=== PATIENT | female | born 1950 | race Caucasian/White ===

== ENCOUNTER 2019-02-17 08:27 | Day surgery (SDC) | payer MEDICARE, OTHER ==
[~2019-02-17] VITALS: Ht 160 cm; Wt 65.7 kg
[~2019-02-17 08:27] MED LIST: AMLO5 PO; ASPI325EC PO; CARV6.25 PO; CYCL10; DULO30; Furosemide20 MG; GABA600 PO; Hydrochlorothia25 MG PO; IBUP600 PO; LOSARTAN POTAS100 MG PO; LOSHYD100; Micro-K10 MEQ; Mobic15 MG PO; OLME20 PO; Omeprazole20 M1; VENL37.5 PO
== END 2019-02-17 11:00 | disposition home or self-care (01) ==
LOC: ORSCSDS 08:27
PROVIDERS: Ophthalmology
PROC: 08RK3JZ Replacement of Left Lens with Synthetic Substitute, Percutaneous Approach (ICD-10-PCS; principal; 2019-02-17 10:00)
DX: H25.12 Age-related nuclear cataract, left eye (principal); Z79.899 Other long term (current) drug therapy; I10 Essential (primary) hypertension; Z87.891 Personal history of nicotine dependence
CPT/HCPCS: J2001; J2250; J3010; J3301; J7120; V2632

== ENCOUNTER 2019-03-31 06:12 | Day surgery (SDC) | payer MEDICARE, OTHER ==
[~2019-03-31] VITALS: Ht 160 cm; Wt 65.7 kg
--- NOTE | 2019-03-31 07:04 | NUR ---
03/31/19 0704 Shannon Estrada PT COMPLAINS THAT IV SITE ACHES, IT IS RUNNING WELL AND NOT IRRITATION OR REDNESS NOTED, I OFFERED TO RESTART IT IN A DIFFERENT LOCATION. SHE SAYS SHE IS TOLERATING IT AND WILL KEEP IT IN THAT LOCATION FOR THE PROCEDURE.
== END 2019-03-31 08:07 | disposition home or self-care (01) ==
LOC: ORSCSDS 06:12
PROVIDERS: Ophthalmology
PROC: 08RJ3JZ Replacement of Right Lens with Synthetic Substitute, Percutaneous Approach (ICD-10-PCS; principal; 2019-03-31 07:30)
DX: H25.11 Age-related nuclear cataract, right eye (principal); I10 Essential (primary) hypertension; Z79.899 Other long term (current) drug therapy
CPT/HCPCS: J2001; J2250; J3010; J3301; J7120; V2632

== ENCOUNTER 2019-06-29 12:28 | Day surgery (SDC) | payer MEDICARE, OTHER ==
[~2019-06-29] VITALS: Ht 160 cm; Wt 65.1 kg
[~2019-06-29 12:28] MED LIST changes: +IBUP400 PO
--- NOTE | 2019-06-29 13:26 | NUR ---
Ambulatory in Day SurgeryLungs clear T/O to Auscultation. History, Chart, Medications and Allergies reviewed before start of procedure.Patient confirms NPO status and agrees with scheduled surgery. Pre-Op teaching done. Pt verbalizes understanding.
--- NOTE | 2019-06-29 18:14 | NUR ---
PT ARRIVED TO THE ROOM AT APPROXIMATELY 1740. PT ALERT AND ORIENTED. PT DENIES PAIN. PT IS ABLE TO MOVE ALL EXTREMITIES WELL. SHE REPORTS DECREASED SENSATION BELOW KNEE LEVEL. DENIES NAUSEA. VSS. WILL CONTINUE TO MONITOR.
--- NOTE | 2019-06-29 19:28 | NUR ---
SHIFT SUMMARY NO SIGNIFICANT CHANGES TO REPORT SINCE PT ARRIVED TO FLOOR POST-OP. PO PAIN MEDICATION GIVEN. PT REPORTS SHE IS STARTING TO HAVE MORE FEELING IN HER BLE. VSS. REPORT GIVEN TO MACHELLE SKELTON.
[2019-06-30 05:14] LABS: BASOPHILS ABSOLUTE AUTO 0.04 K/mm3 (0.00-0.23); BASOPHILS PERCENT AUTO 0 % (0-2); EOSINOPHILS ABSOLUTE AUTO 0.02 K/mm3 (0.00-0.68); EOSINOPHILS PERCENT AUTO 0 % (0-6); Hematocrit 34.2 % (33.0-51.0); IMMATURE GRAN ABSOLUTE AUTO 0.03 K/mm3 (0.00-0.10); IMMATURE GRAN PERCENT AUTO 0 % (0-1); LYMPHOCYTES ABSOLUTE AUTO 1.28 K/mm3 (0.84-5.20); LYMPHOCYTES PERCENT AUTO 12 % (21-46); MONOCYTES PERCENT AUTO 8 % (4-13); Mean Corpuscular HGB 28.6 pg (26.0-34.0); Mean Corpuscular HGB Conc 32.2 g/dL (31.5-36.5); Mean Corpuscular Volume 89 fL (80-100); Mean Platelet Volume 10.5 fL (9.1-12.4); NEUTROPHILS ABSOLUTE AUTO 8.53 K/mm3 (1.96-9.15); NEUTROPHILS PERCENT AUTO 80 % (41-73); Platelet Count 202 K/mm3 (150-400); RDW Coefficient Variation 13.7 % (11.7-14.2); RDW Standard Deviation 44.6 fL (35.1-46.3); Red Blood Cell Count 3.85 M/mm3 (3.80-5.20)
[2019-06-30 05:29] LABS: Anion Gap 6 mmol/L (6-16); Blood Urea Nitrogen 13 mg/dL (8-24); Bun/Creatinine Ratio 24.1 (12.0-20.0); CO2, Blood 30 mmol/L (21-32); Calcium, Blood 8.3 mg/dL (8.5-10.1); Chloride, Blood 107 mmol/L (98-108); Creatinine, Blood 0.54 mg/dL (0.40-1.00); Glomerular Filtration Rate >60 (60-); Glucose, Blood 131 mg/dL (70-99); Magnesium, Blood 1.9 mg/dL (1.6-2.4); Potassium, Blood 3.8 mmol/L (3.5-5.5); Sodium, Blood 143 mmol/L (136-145)
--- NOTE | 2019-06-30 07:18 | NUR ---
SUMMARY POD #1 LEFT TKA DRSG REMAINS C/D/I, CIRC WNL. PAIN MANAGED PER EMAR WITH PO OXYCODONE/TYLENOL. PT IS TOLERATING PO INTAKE. VOIDING WNL. 1 ASSIST TO THE BATHROOM USING FWW/GAIT BELT. CALL LIGHT IN REACH.
--- NOTE | 2019-06-30 08:31 | NUR ---
THERAPY REPORTS WILL BE WORKING WITH PT SOON.
--- NOTE | 2019-06-30 14:28 | NUR ---
DR ROSSI HERE RECENTLY TO SEE PT. DRESSING CHANGED.
[2019-06-30] MEDS ORDERED: OXYC5 PO (16:16)
[2019-06-30] MEDS ORDERED: ASPI325EC PO (16:50)
--- NOTE | 2019-06-30 17:00 | NUR ---
DISCHARGE: PT EATING AND DRINKING, VOIDING. PT BEEN CLEARED BY THERAPY TO GO HOME. PT/FAMILY REPORTS HAVING APPR EQUIP AT HOME. PT/FAMILY REPORTS UNDERSTANDING OF DISCHARGE INSTRUCTIONS INCLUDING DRESSINGS, ICE MACHINE. PT SENT WITH DRESSING SUPPLIES, ICE MACHINE, PAPERWORK INCLUDING SCRIPTS.
== END 2019-06-30 17:12 | disposition home or self-care (01) ==
LOC: ORSCMMR 12:28 → SURS 17:37 → ORSCMMR 17:37 → SURS 06-30 17:12 → ORSCMMR 06-30 17:12
PROVIDERS: Orthopaedic Surgery
PROC: 0SRD0J9 Replacement of Left Knee Joint with Synthetic Substitute, Cemented, Open Approach (ICD-10-PCS; principal; 2019-06-29 14:30)
DX: M17.12 Unilateral primary osteoarthritis, left knee (principal); E78.5 Hyperlipidemia, unspecified; I10 Essential (primary) hypertension; Z87.891 Personal history of nicotine dependence; Z79.899 Other long term (current) drug therapy
CPT/HCPCS: 36415; 73560-LT; 80048; 83735; 85025; 86850; 86900; 86901; 88300; 97110; 97116; 97161; 97530; C1713; C1776; J0171; J0690; J0735; J1100; J1885; J2250; J2370; J2405; J2704; J2795; J3010; J7120

== ENCOUNTER 2022-09-20 06:14 | Day surgery (SDC) | payer OTHER ==
[~2022-09-20] VITALS: Ht 160 cm; Wt 71.5 kg
[~2022-09-20 06:14] MED LIST changes: +ASPI81CH PO; +DICL75ER PO; +OXYC5 PO; +Percocet 5-3251 EACH PO
[2022-09-20] MEDS ORDERED: Vitamin D2000 UNIT PO (06:54)
--- NOTE | 2022-09-20 07:57 | NUR ---
09/20/22 0757 Jeb Foy 0.15ML OF EPI 1MG/ML ADDED TO 30ML OF ROPIVICAINE 0.5% TO CREATE A SOLUTION OF ROPIVICAINE 0.5% WITH EPI 1:200,000.
--- NOTE | 2022-09-20 09:55 | NUR ---
09/20/22 0955 HAN BRUNO PT EATING AND DRINKING W/O DIFFICULTY. STATES PAIN NOT BAD, 02/17.
== END 2022-09-20 10:45 | disposition home or self-care (01) ==
LOC: ORSCSDS 06:14
PROVIDERS: Podiatrist Foot & Ankle Surgery
PROC: 0SNM0ZZ Release Right Metatarsal-Phalangeal Joint, Open Approach (ICD-10-PCS; principal; 2022-09-20 07:30)
PROC: 0QSQ04Z Reposition Right Toe Phalanx with Internal Fixation Device, Open Approach (ICD-10-PCS; principal; 2022-09-20 07:30)
PROC: 0SGP04Z Fusion of Right Toe Phalangeal Joint with Internal Fixation Device, Open Approach (ICD-10-PCS; principal; 2022-09-20 07:30)
PROC: 0SGK04Z Fusion of Right Tarsometatarsal Joint with Internal Fixation Device, Open Approach (ICD-10-PCS; principal; 2022-09-20 07:30)
DX: M21.611 Bunion of right foot (principal); M20.41 Other hammer toe(s) (acquired), right foot; M77.41 Metatarsalgia, right foot; R60.0 Localized edema; I10 Essential (primary) hypertension; Z79.899 Other long term (current) drug therapy
CPT/HCPCS: A9270; C1713; J0171; J0690; J1100; J1885; J2250; J2405; J2704; J2795; J3010; J7120

== ENCOUNTER → 2023-08-27 | Outpatient (CLI) | payer OTHER ==
[~2023-08-27] MED LIST changes: +Vitamin D2000 UNIT PO
== END | disposition home or self-care (01) ==
LOC: LAB SHORT 11:12 → LAB 11:12
DX: R22.2 Localized swelling, mass and lump, trunk (principal)
CPT/HCPCS: 88305; 88341; 88342

== ENCOUNTER → 2023-09-10 | Outpatient (CLI) | payer OTHER ==
[2023-09-10 12:02] LABS: BASOPHILS ABSOLUTE AUTO 0.06 K/mm3 (0.00-0.23); BASOPHILS PERCENT AUTO 1 % (0-2); EOSINOPHILS ABSOLUTE AUTO 0.14 K/mm3 (0.00-0.68); EOSINOPHILS PERCENT AUTO 3 % (0-6); Hematocrit 43.7 % (33.0-51.0); Hemoglobin 14.3 g/dL (11.5-16.0); IMMATURE GRAN ABSOLUTE AUTO 0.01 K/mm3 (0.00-0.10); IMMATURE GRAN PERCENT AUTO 0 % (0-1); LYMPHOCYTES ABSOLUTE AUTO 1.27 K/mm3 (0.84-5.20); LYMPHOCYTES PERCENT AUTO 23 % (21-46); MONOCYTES ABSOLUTE AUTO 0.39 K/mm3 (0.16-1.47); MONOCYTES PERCENT AUTO 7 % (4-13); Mean Corpuscular HGB 29.1 pg (26.0-34.0); Mean Corpuscular HGB Conc 32.7 g/dL (31.5-36.5); Mean Corpuscular Volume 89 fL (80-100); NEUTROPHILS ABSOLUTE AUTO 3.75 K/mm3 (1.96-9.15); NEUTROPHILS PERCENT AUTO 67 % (41-73); Platelet Count 219 K/mm3 (150-400); RDW Coefficient Variation 13.4 % (11.7-14.2); Red Blood Cell Count 4.92 M/mm3 (3.80-5.20); White Blood Cell Count 5.62 K/mm3 (4.00-11.30)
[2023-09-10 12:22] LABS: Albumin, Blood 4.3 g/dL (3.4-5.0); Albumin/Globulin Ratio 1.3 (0.8-1.8); Bilirubin, Total 0.3 mg/dL (0.1-1.0); Bun/Creatinine Ratio 26.5 (12.0-20.0); Calcium, Blood 9.8 mg/dL (8.5-10.1); Creatinine, Blood 0.75 mg/dL (0.40-1.00); Globulin, Blood 3.3 g/dL (2.2-4.0); Potassium, Blood 4.4 mmol/L (3.5-5.5); Total Protein, Blood 7.6 g/dL (6.4-8.2)
== END | disposition home or self-care (01) ==
LOC: LAB 10:57 → LAB SHORT 10:57
PROVIDERS: Internal Medicine Hematology & Oncology
DX: C43.59 Malignant melanoma of other part of trunk (principal)
CPT/HCPCS: 80053; 83615; 85025

== ENCOUNTER 2023-10-31 15:46 | Emergency (ER) | payer OTHER ==
[~2023-10-31] VITALS: Ht 160 cm; Wt 68.0 kg
[2023-10-31 16:16] LABS: Hematocrit 37.6 % (33.0-51.0); Hemoglobin 12.6 g/dL (11.5-16.0); Mean Corpuscular HGB Conc 33.5 g/dL (31.5-36.5); Mean Corpuscular Volume 86 fL (80-100); Mean Platelet Volume 10.5 fL (9.1-12.4); Platelet Count 211 K/mm3 (150-400); RDW Coefficient Variation 13.1 % (11.7-14.2); RDW Standard Deviation 41.3 fL (35.1-46.3); Red Blood Cell Count 4.35 M/mm3 (3.80-5.20); White Blood Cell Count 5.71 K/mm3 (4.00-11.30)
[2023-10-31] MEDS ORDERED: Diclofenac Sodi50 MG PO (16:46)
[2023-10-31] MEDS ORDERED: AMLODIPINE-OLM1 EAC2 PO (16:47)
[2023-10-31] MEDS ORDERED: B-121000 MC3 PO (16:47)
[2023-10-31 16:54] LABS: Albumin, Blood 2.8 g/dL (3.4-5.0); Albumin/Globulin Ratio 0.7 (0.8-1.8); Bilirubin, Total 0.4 mg/dL (0.1-1.0); Bun/Creatinine Ratio 31.4 (12.0-20.0); Creatinine, Blood 0.93 mg/dL (0.40-1.00); Globulin, Blood 3.9 g/dL (2.2-4.0); Magnesium, Blood 2.1 mg/dL (1.6-2.4); Potassium, Blood 3.7 mmol/L (3.5-5.5); Total Protein, Blood 6.7 g/dL (6.4-8.2)
[2023-10-31 17:24] LABS: BAND PERCENT MAN 45 % (0-8); BASOPHILS ABSOLUTE MAN 0.11 K/mm3 (0.00-0.23); BASOPHILS PERCENT MAN 2 % (0-2); EOSINOPHILS PERCENT MAN 0 % (0-6); LYMPHOCYTES ABSOLUTE MAN 0.74 K/mm3 (0.84-5.20); LYMPHOCYTES PERCENT MAN 13 % (21-46); METAMYELOCYTE ABSOLUTE MAN 0.05 K/mm3 (0.00-0.00); METAMYELOCYTE PERCENT MAN 1 % (0-0); MONOCYTES ABSOLUTE MAN 0.74 K/mm3 (0.16-1.47); MONOCYTES PERCENT MAN 13 % (4-13); NEUTROPHILS ABSOLUTE MAN 4.05 K/mm3 (1.96-9.15); SEG NEUTROPHILS PERCENT MAN 26 % (41-73); TOTAL CELLS COUNTED 100
[2023-10-31 19:42] LABS: Adenovirus Not Detected (NOT DETECT); Bordetella pertussis Not Detected (NOT DETECT); Chlamydophila pneumoniae Not Detected (NOT DETECT); Coronavirus 229E Not Detected (NOT DETECT); Coronavirus HKU1 Not Detected (NOT DETECT); Coronavirus NL63 Not Detected (NOT DETECT); Coronavirus OC43 Not Detected (NOT DETECT); Human Metapneumovirus Not Detected (NOT DETECT); Human Rhinovirus/Enterovirus Not Detected (NOT DETECT); Influenza A/2009-H1 Not Detected (NOT DETECT); Influenza A/H1 Not Detected (NOT DETECT); Influenza A/H3 Not Detected (NOT DETECT); Influenza B Not Detected (NOT DETECT); Mycoplasma pneumoniae Not Detected (NOT DETECT); Parainfluenza Virus 1 Not Detected (NOT DETECT); Parainfluenza Virus 2 Not Detected (NOT DETECT); Parainfluenza Virus 3 Not Detected (NOT DETECT); Parainfluenza Virus 4 Not Detected (NOT DETECT); Respiratory Syncytial Virus Not Detected (NOT DETECT); SARS-Cov-2 (COVID-19), BioFire Not Detected (NOT DETECT)
[2023-10-31 20:30] VITALS: BP 127/72
[2023-10-31] MEDS ORDERED: ONDA4ODT MM (21:15)
[2023-10-31] MEDS ORDERED: PROMETHAZINE12.5 M1 PO (21:15)
== END 2023-10-31 21:44 | disposition home or self-care (01) ==
LOC: ER 15:46
PROVIDERS: Physician Assistant; Student in an Organized Health Care Education/Training Program
DX: E86.0 Dehydration (principal); R11.2 Nausea with vomiting, unspecified; R19.7 Diarrhea, unspecified; C43.9 Malignant melanoma of skin, unspecified; Z20.822 Contact with and (suspected) exposure to COVID-19; Z79.899 Other long term (current) drug therapy; I10 Essential (primary) hypertension; Z87.891 Personal history of nicotine dependence; Z88.2 Allergy status to sulfonamides
CPT/HCPCS: 0202U; 70450; 80053; 83735; 85025; 96374; 99284-25; A9270; J2405; J7030

== ENCOUNTER 2023-11-04 16:27 | Inpatient (IN) | payer OTHER ==
[~2023-11-04] VITALS: Ht 160 cm; Wt 71.9 kg
[~2023-11-04 16:27] MED LIST changes: +AMLODIPINE-OLM1 EAC2 PO; +B-121000 MC3 PO; +Diclofenac Sodi50 MG PO; +ONDA4ODT MM; +PROMETHAZINE12.5 M1 PO
[2023-11-04 16:57] LABS: Hematocrit 37.9 % (33.0-51.0); Hemoglobin 12.5 g/dL (11.5-16.0); Mean Corpuscular HGB 28.5 pg (26.0-34.0); Mean Corpuscular Volume 86 fL (80-100); Mean Platelet Volume 10.3 fL (9.1-12.4); Platelet Count 215 K/mm3 (150-400); RDW Coefficient Variation 13.4 % (11.7-14.2); RDW Standard Deviation 42.5 fL (35.1-46.3); Red Blood Cell Count 4.39 M/mm3 (3.80-5.20)
[2023-11-04 17:25] LABS: Albumin, Blood 2.4 g/dL (3.4-5.0); Albumin/Globulin Ratio 0.7 (0.8-1.8); Bilirubin, Total 0.2 mg/dL (0.1-1.0); Creatinine, Blood 1.22 mg/dL (0.40-1.00); Globulin, Blood 3.6 g/dL (2.2-4.0); Potassium, Blood 3.4 mmol/L (3.5-5.5)
[2023-11-04 18:19] LABS: BAND PERCENT MAN 1 % (0-8); BASOPHILS PERCENT MAN 0 % (0-2); EOSINOPHILS PERCENT MAN 0 % (0-6); LYMPHOCYTES % ATYPICAL MANUAL 2 % (0-0); LYMPHOCYTES ABSOLUTE MAN 0.82 K/mm3 (0.84-5.20); LYMPHOCYTES PERCENT MAN 16 % (21-46); METAMYELOCYTE ABSOLUTE MAN 0.09 K/mm3 (0.00-0.00); METAMYELOCYTE PERCENT MAN 2 % (0-0); MONOCYTES ABSOLUTE MAN 0.27 K/mm3 (0.16-1.47); MONOCYTES PERCENT MAN 6 % (4-13); MYELOCYTE ABSOLUTE MAN 0.13 K/mm3 (0.00-0.00); MYELOCYTE PERCENT MAN 3 % (0-0); NEUTROPHILS ABSOLUTE MAN 3.26 K/mm3 (1.96-9.15); SEG NEUTROPHILS PERCENT MAN 70 % (41-73); TOTAL CELLS COUNTED 100
[2023-11-04 19:46] LABS: Influenza A, PCR NEGATIVE (NEGATIVE); Influenza B, PCR NEGATIVE (NEGATIVE); Resp Syncytial Virus, PCR NEGATIVE (NEGATIVE); SARS-Cov-2 (COVID-19) PCR, MMC NEGATIVE (NEGATIVE)
[2023-11-04 20:38] LABS: Source, Urine Clean Catch
[2023-11-04 20:50] LABS: Bilirubin, Urine Neg (Neg); Blood, Urine 1+ (Neg); Glucose Qualitative, Urine Neg (Neg); Ketones, Urine Neg (Neg); Leukocyte Esterase, Urine Neg (Neg); Nitrite, Urine Neg (Neg); Protein, Urine 2+ (Neg); Urobilinogen, Urine NORM (Normal)
[2023-11-04 20:58] LABS: Appearance, Urine Turbid (Clear); Color, Urine Yellow (P-Yellow)
[2023-11-04 21:00] LABS: Amorphous Mod (0-Heavy); Bacteria Few /hpf; Granular Casts 0-2 /lpf (0); Squamous Epithelial Cells Few /hpf (Few); White Blood Cells, Urine 0-2 /hpf (0-5)
[2023-11-04 21:13] LABS: U Amphetamine Screen Not Detected; U Barbituate Screen Not Detected; U Benzodiazapine Screen Not Detected; U Buprenorphine Screen Not Detected; U Cannabinoids Screen Not Detected; U Cocaine Screen Not Detected; U Methadone Screen Not Detected; U Methamphetamine Screen Not Detected; U Opiates Screen Not Detected; U Oxycodone Screen Not Detected; U Phencyclidine Screen Not Detected
[2023-11-04] MEDS ORDERED: AMLODIPINE BESYL5 MG PO (22:50)
[2023-11-04] MEDS ORDERED: OLMESARTAN MEDO20 MG PO (22:51)
[2023-11-04 23:06] LABS: International Normalized Ratio 1.04; Prothrombin Time Results 10.9 Sec (9.7-11.5)
[2023-11-04 23:39] VITALS: BP 132/75
--- NOTE | 2023-11-04 23:39 | NUR ---
NEW ADMIT. PATIENT TO ROOM 350 FROM THE ER VIA WHEEL CHAIR. PATIENT ABLE TO SELF TRANSFER TO BED. PATIENT CAME TO ROOM WITH A PERSONAL BLACK BAG, AND A PERSONAL BELONGINGS BAG. PATIENT ARRIVED IN HER STREET CLOTHES.
[2023-11-05 00:59] LABS: Hematocrit 35.8 % (33.0-51.0); Hemoglobin 11.8 g/dL (11.5-16.0); Mean Corpuscular HGB 28.2 pg (26.0-34.0); Mean Corpuscular Volume 85 fL (80-100); Mean Platelet Volume 10.4 fL (9.1-12.4); Platelet Count 207 K/mm3 (150-400); RDW Coefficient Variation 13.5 % (11.7-14.2); RDW Standard Deviation 42.5 fL (35.1-46.3); Red Blood Cell Count 4.19 M/mm3 (3.80-5.20); White Blood Cell Count 6.12 K/mm3 (4.00-11.30)
[2023-11-05 01:20] LABS: Albumin/Globulin Ratio 0.6 (0.8-1.8); Bilirubin, Total 0.2 mg/dL (0.1-1.0); Bun/Creatinine Ratio 27.9 (12.0-20.0); Calcium, Blood 8.4 mg/dL (8.5-10.1); Creatinine, Blood 0.97 mg/dL (0.40-1.00); Globulin, Blood 3.1 g/dL (2.2-4.0); Potassium, Blood 3.3 mmol/L (3.5-5.5); Total Protein, Blood 5.1 g/dL (6.4-8.2)
[2023-11-05 01:24] LABS: BAND PERCENT MAN 19 % (0-8); BASOPHILS PERCENT MAN 0 % (0-2); EOSINOPHILS PERCENT MAN 0 % (0-6); LYMPHOCYTES ABSOLUTE MAN 0.55 K/mm3 (0.84-5.20); LYMPHOCYTES PERCENT MAN 9 % (21-46); METAMYELOCYTE ABSOLUTE MAN 0.12 K/mm3 (0.00-0.00); METAMYELOCYTE PERCENT MAN 2 % (0-0); MONOCYTES ABSOLUTE MAN 0.55 K/mm3 (0.16-1.47); MONOCYTES PERCENT MAN 9 % (4-13); MYELOCYTE ABSOLUTE MAN 0.18 K/mm3 (0.00-0.00); MYELOCYTE PERCENT MAN 3 % (0-0); NEUTROPHILS ABSOLUTE MAN 4.71 K/mm3 (1.96-9.15); SEG NEUTROPHILS PERCENT MAN 58 % (41-73); TOTAL CELLS COUNTED 100
--- NOTE | 2023-11-05 02:00 | NUR ---
IN AT BEDSIDE. EXAMINED PATIENT FOR C/O ABDOMINAL PAIN. DOCTOR ORDERED FOR A CT OF ABDOMEN AND PELVIS W/O CONTRAST AND ANTIBIOTICS-SEE RADHA.
--- NOTE | 2023-11-05 03:50 | NUR ---
PATIENT OUT TO IMAGING.
--- NOTE | 2023-11-05 04:12 | NUR ---
PATIENT WOKEN UP FOR IMAGING, PRIOR TO RETURN TO ROOM IMAGING CALLED PATIENT UNABLE TO FOLLOW DIRECTIONS AND NOT RESPONDING. UPON RETURN PATIENT NOTED BY THIS RN AND RUBA MIGUEL RN TO HAVE A SLIGHT LEFT FACIAL DROOP AND LEFT SIDED DEFICIT TO LOWER LEFT EXTREMITY. PATIENT HAVING DIFFICULTY LIFTING FOOT UP TO WALK. PATIENT UNABLE TO ANSWER QUESTIONS, RESPONDING WITH "YEAH, HUH". DOCTOR DAVIS CONTACTED AND NOTIFIED OF PATIENTS CHANGE IN CONDITION. TO ORDER CT OF HEAD W/O CONTRAST. DOCTOR DAVIS REQUESTED TO HAVE A LUMBAR PUNCTURE FROM ICU TO ROOM.
[2023-11-05 04:13] VITALS: BP 140/78
--- NOTE | 2023-11-05 05:12 | NUR ---
DOCTOR SUSAN IN AT BEDSIDE. PATIENT IN THE RESTROOM. DOCTOR NOTIFIED PATIENT THAT HE WOULD BE DOING A LUMBAR PUNCTURE TO CHECK FOR AN INFECTION. SUPPLIES GATHERED-WAITIING FOR PATIENT TO FINISH IN THE BATHROOM AT THIS TIME.
--- NOTE | 2023-11-05 05:56 | NUR ---
LUMBAR PUNCTURE PREFORMED BY DR. DAVIS COMPLETED. PATIENT TOLERATED PROCEDURE WELL. THIS RN LABLED LABS. LABS WALKED TO LABORATORY BY [employer]. PATIENT TO LAY ON BACK OR SIDE FOR 3 HOURS. THREE HOURS WILL BE DONE AT 0856. PATIENT TOLERATING LAYING FLAT AT THIS TIME. TO MONITOR PUNCTURE SITE AND NOTIFY PROVIDER OF ANY ABNORMALITIES.
[2023-11-05 06:43] LABS: Appearance, CSF Clear (Clear); Color, CSF No Color (No Color)
[2023-11-05 06:45] LABS: RBC Count, CSF 2 /mm3 (0-0); WBC Count, CSF 0 /mm3 (0-5)
[2023-11-05 06:51] LABS: Glucose, CSF 60 mg/dL (40-70)
[2023-11-05 07:01] LABS: Appearance, CSF Clear (Clear); Color, CSF No Color (No Color)
[2023-11-05 07:02] LABS: RBC Count, CSF 1 /mm3 (0-0); WBC Count, CSF 0 /mm3 (0-5)
--- NOTE | 2023-11-05 07:29 | NUR ---
SHIFT SUMMARY. PATIENT A/O WAXES AND WANES BETWEEN A/OX4 TO A/O TO SELF. PATIENT HAS DIFFICULTY WALKING AT TIMES. PATIENT IS FEBRILE THIS SHIFT-MEDICATED PER EMAR. PATIENT HAD LUMBAR PUNCTURE THIS SHIFT-SEE OTHER NOTES. PATIENT IS A POOR HISTORIAN AT THIS TIME. PATIENT TAKES PILLS WHOLE WITH WATER-NEEDS TO BE DOUBLE CHECKED THAT PILLS ARE TAKEN-PER SALES OPERATIONS COORDINATOR PILLS WERE FOUND IN PATIENTS ROOM STUCK TOGETHER AND MOIST AFTER PATIENT LEFT ED. PATIENT CAN MAKE HER NEEDS KNOWN AT TIMES. PATIENTS HYGEINE CREAMS WERE ON BEDSIDE TABLE, UPON ENTERING ROOM TO START IV ANTIBIOTICS PER EMAR PATIENT HAD PINK SUBSTANCE ON BOTTOM LIP AND IN MOUTH, WHEN ASKED WHAT SHE HAD IN HER MOUTH PATIENT RESPONDED "I DONT KNOW". CREAMS REMOVED FROM BEDSIDE. PATIENT IS INDEPENDENT, AND WORKING. BED EXIT ALARM IS ENGAGED FOR PATIENT SAFETY. BED IS LOCKED IN THE LOWEST POSITION WITH CALL LIGHT IN REACH.
[2023-11-05 07:33] VITALS: BP 101/62
[2023-11-05 07:44] LABS: Cryptococcus Neoformans/Gattii Not Detected (NOT DETECT); Enterovirus Not Detected (NOT DETECT); Escherichia Coli K1 Not Detected (NOT DETECT); Haemophilus Influenza Not Detected (NOT DETECT); Herpes Simplex Virus 1 Not Detected (NOT DETECT); Herpes Simplex Virus 2 Not Detected (NOT DETECT); Human Herpesvirus 6 Not Detected (NOT DETECT); Human Parechovirus Not Detected (NOT DETECT); Listeria Monocytogenes Not Detected (NOT DETECT); Neisseria Meningitidis Not Detected (NOT DETECT); Streptococcus Agalactiae Not Detected (NOT DETECT); Streptococcus Pneumoniae Not Detected (NOT DETECT); Varicella Zoster Virus Not Detected (NOT DETECT)
[2023-11-05 10:49] VITALS: BP 107/60
[2023-11-05 14:01] LABS: Adenovirus F 40/41 Not Detected (NOT DETECT); Astrovirus Not Detected (NOT DETECT); Campylobacter Sp Not Detected (NOT DETECT); Cryptosporidium Not Detected (NOT DETECT); Cyclospora Cayetanensis Not Detected (NOT DETECT); E. Coli O157 Not Detected (NOT DETECT); Entamoeba Histolytica Not Detected (NOT DETECT); Enteroaggregative E. coli-EAEC Not Detected (NOT DETECT); Enteropathogenic E. coli-EPEC Not Detected (NOT DETECT); Enterotoxigenic E. coli-ETEC Not Detected (NOT DETECT); Giardia Lamblia Not Detected (NOT DETECT); Norovirus GI/GII Not Detected (NOT DETECT); Plesiomonas Shigelloides Not Detected (NOT DETECT); Rotavirus A Not Detected (NOT DETECT); Salmonella Sp Not Detected (NOT DETECT); Sapovirus Not Detected (NOT DETECT); Shiga Toxin-prod E. coli-STEC Not Detected (NOT DETECT); Shigella/Enteroin E. coli-EIEC Not Detected (NOT DETECT); Vibrio Cholerae Not Detected (NOT DETECT); Vibrio Sp Not Detected (NOT DETECT); Yersinia Enterocolitica Not Detected (NOT DETECT)
[2023-11-05 15:32] VITALS: BP 104/65
--- NOTE | 2023-11-05 16:39 | NUR ---
NOTE PT ALERT. ORINETDX4. USING CALL LIGHT APPROPRIATELY. VSS. UP TO BATHROOM WITH LOOSE STOOL. STOOL SAMPLE SENT TO LAB. PT ATE A REGULAR DIET FOR LUNCH. NO DIFFICULTY. DENIES NAUSEA. SHE DENIED THAT HER SHALINI ARE/RECTAL SKIN IS GETTING SORE FORM THE DIARRHEA. OFFERED CREAM. UP WITH SBA D/T PUMPS. GAIT STEADY. LP SITE BRYCE. BANDAID CAME OFF. NO SWELLING OR HEMATOMA NOTED. SHE HAD NO HEADACHE AFTER LAYING FLAT THIS MORNING. SHE HAS NO RECALL OF THE LP. PT HAS NEEDE COMPLETE BED CHANGE D/T SWEATING. NO ELEVATED TEMPERATURE BUT SHE DOES GET PROFOUNDLY COOL AND CLAMMY. TELELMETRY STABLE. HEART RATE HAS SLOWLY DECREASED INTO THE 90'S. SHE HAS DENIED PAIN OR SOB. SIGNIFICANT OTHER HAS COME IN SEVERAL TIMES TODAY. CARE ONGOING.
[2023-11-06 05:26] LABS: Vancomycin, Trough 17.1 ug/mL (5.0-10.0)
[2023-11-06 05:48] VITALS: BP 128/90
--- NOTE | 2023-11-06 05:57 | NUR ---
SHIFT SUMMARY. PATIENT A/OX4. 1P ASSIST/SBA TO BATHROOM TO ASSIST W/ IV POLES. PATIENT IS PLEASANT, USES CALL LIGHT APPROPRIATELY, AND IS ABLE TO MAKE HER NEEDS KNOWN. PATIENT HAVING LOOSE STOOL THIS SHIFT-SAMPLE SENT TO LAB PER ORDER. PATIENTS ANTECUBITAL IV'S WENT BAD THIS SHIFT-NEW IV'S PLACED BY CHARGE NURSE GLENYS VACA. PATIENTS GAIT IS STEADY. PATIENT HAD A SHOWER THIS SHIFT W/ LINENS CHANGED. TELE IS ON W/LEADS IN PLACE-NO EVENTS NOTED. BED IS LOCKED IN THE LOWEST POSITION W/ CALL LIGHT IN REACH. NO S/S OF DISTRESS NOTED AT THIS TIME.
[2023-11-06 06:56] LABS: Adenovirus F 40/41 Not Detected (NOT DETECT); Astrovirus Not Detected (NOT DETECT); Campylobacter Sp Not Detected (NOT DETECT); Cryptosporidium Not Detected (NOT DETECT); Cyclospora Cayetanensis Not Detected (NOT DETECT); E. Coli O157 Not Detected (NOT DETECT); Entamoeba Histolytica Not Detected (NOT DETECT); Enteroaggregative E. coli-EAEC Not Detected (NOT DETECT); Enteropathogenic E. coli-EPEC Not Detected (NOT DETECT); Enterotoxigenic E. coli-ETEC Not Detected (NOT DETECT); Giardia Lamblia Not Detected (NOT DETECT); Norovirus GI/GII Not Detected (NOT DETECT); Plesiomonas Shigelloides Not Detected (NOT DETECT); Rotavirus A Not Detected (NOT DETECT); Salmonella Sp Not Detected (NOT DETECT); Sapovirus Not Detected (NOT DETECT); Shiga Toxin-prod E. coli-STEC Not Detected (NOT DETECT); Shigella/Enteroin E. coli-EIEC Not Detected (NOT DETECT); Vibrio Cholerae Not Detected (NOT DETECT); Vibrio Sp Not Detected (NOT DETECT); Yersinia Enterocolitica Not Detected (NOT DETECT)
[2023-11-06 07:37] VITALS: BP 146/86
[2023-11-06 08:52] LABS: Hematocrit 35.3 % (33.0-51.0); Mean Corpuscular HGB 28.6 pg (26.0-34.0); Mean Corpuscular Volume 84 fL (80-100); Mean Platelet Volume 11.1 fL (9.1-12.4); Platelet Count 196 K/mm3 (150-400); RDW Coefficient Variation 13.5 % (11.7-14.2); RDW Standard Deviation 41.7 fL (35.1-46.3); White Blood Cell Count 9.44 K/mm3 (4.00-11.30)
[2023-11-06 09:07] LABS: Bun/Creatinine Ratio 29.5 (12.0-20.0); Calcium, Blood 8.2 mg/dL (8.5-10.1); Creatinine, Blood 0.64 mg/dL (0.40-1.00); Potassium, Blood 3.1 mmol/L (3.5-5.5)
[2023-11-06 09:08] LABS: BAND PERCENT MAN 13 % (0-8); BASOPHILS PERCENT MAN 0 % (0-2); EOSINOPHILS PERCENT MAN 0 % (0-6); LYMPHOCYTES ABSOLUTE MAN 0.75 K/mm3 (0.84-5.20); LYMPHOCYTES PERCENT MAN 8 % (21-46); MONOCYTES ABSOLUTE MAN 0.37 K/mm3 (0.16-1.47); MONOCYTES PERCENT MAN 4 % (4-13); SEG NEUTROPHILS PERCENT MAN 75 % (41-73); TOTAL CELLS COUNTED 100
--- NOTE | 2023-11-06 14:39 | NUR ---
SPOUCE BEHAVIOR DR ORTIZ VOICED CONCERN ABOUT THER SPOUCES TREATMENT OF HER. ARCHITECTURAL MANAGER AWARE. PT BROUGHT UP HUSBANDS BEHAVIOR. DISCUSSED HIS BEHAVIOR AND APPROPRIATE. SHE IS PLANNIGN TO TALK WITH HIM CARE ONGOING.
[2023-11-06 17:13] VITALS: BP 145/90
[2023-11-06] MEDS ORDERED: MELATONIN5 M1 PO (18:26)
[2023-11-06 20:09] VITALS: BP 140/87
--- NOTE | 2023-11-07 04:49 | NUR ---
SHIFT SUMMARY. NO ACUTE CHANGES T/O NIGHT. PATIENT AOX3-4. PATIENT IS ABLE TO MAKE HER NEEDS KNOWN AND CALLS APPROPRIATELY. PATIENT UP INDEPENDENTLY IN ROOM. PATIENT GAIT IS STEADY UPON ASSESSMENT/BMAT. PATIENT SLEPT WELL OTHER THAN CARE TIMES. BED IS LOCKED IN LOWEST POSITION WITH CALL LIGHT IN REACH. NO S/S OF DISTRESS NOTED AT THIS TIME.
--- NOTE | 2023-11-07 05:35 | NUR ---
PATIENT REPORTS SHE HAS HAD AN INCREASE IN BLOOD IN HER STOOL TODAY. THIS RN WAS UNABLE TO SEE BM WITH BLOOD IN THE STOOL D/T THE PATIENT HAD ALREADY FLUSHED THE TOILET PRIOR TO CALLING. PATIENT REPORTS THAT WHEN SHE STARTED THE IMMUNOTHERAPY SHE STARTED HAVING DIARHHEA AND THERE WAS SOME BLOOD IN HER STOOLS-SHE HAS COMPARED THE BLOOD THAT WAS IN HER STOOLS THIS AM TO WHEN IT STARTED. PATIENT STATES "IT IS NOT NEW, JUST MORE THAN PRIOR-I THINK THAT ITS FROM THE DIARRHEA I HAVE BEEN HAVING".
--- NOTE | 2023-11-07 05:41 | NUR ---
HOSPITALIST NOTIFIED OF INCREASED AMOUNT OF BLOOD IN PATIENTS STOOL. DOCTOR SUSAN ADVISED THIS RN THAT WE WILL CONTINUE TO MONITOR BLOOD IN STOOLS AND NOTIFY DOCTOR IF THE BLOOD IN STOOL BECOMES A SIGNIFICANT AMOUNT.
[2023-11-07 05:42] VITALS: BP 142/95
[2023-11-07 06:19] LABS: Hematocrit 34.9 % (33.0-51.0); Hemoglobin 11.8 g/dL (11.5-16.0); Mean Corpuscular HGB 28.6 pg (26.0-34.0); Mean Corpuscular HGB Conc 33.8 g/dL (31.5-36.5); Mean Corpuscular Volume 85 fL (80-100); Mean Platelet Volume 10.4 fL (9.1-12.4); Platelet Count 199 K/mm3 (150-400); RDW Coefficient Variation 13.4 % (11.7-14.2); RDW Standard Deviation 42.1 fL (35.1-46.3); Red Blood Cell Count 4.12 M/mm3 (3.80-5.20); White Blood Cell Count 5.81 K/mm3 (4.00-11.30)
[2023-11-07 06:38] LABS: Magnesium, Blood 1.9 mg/dL (1.6-2.4)
[2023-11-07 06:39] LABS: Albumin, Blood 1.9 g/dL (3.4-5.0); Albumin/Globulin Ratio 0.6 (0.8-1.8); Bilirubin, Total 0.4 mg/dL (0.1-1.0); Bun/Creatinine Ratio 26.1 (12.0-20.0); Calcium, Blood 8.2 mg/dL (8.5-10.1); Creatinine, Blood 0.65 mg/dL (0.40-1.00); Globulin, Blood 3.3 g/dL (2.2-4.0); Phosphorus, Blood 2.9 mg/dL (2.5-4.9); Potassium, Blood 3.4 mmol/L (3.5-5.5); Total Protein, Blood 5.2 g/dL (6.4-8.2)
[2023-11-07 07:17] VITALS: BP 139/94
[2023-11-07 08:57] LABS: BAND PERCENT MAN 16 % (0-8); BASOPHILS PERCENT MAN 0 % (0-2); EOSINOPHILS PERCENT MAN 0 % (0-6); LYMPHOCYTES % ATYPICAL MANUAL 1 % (0-0); LYMPHOCYTES ABSOLUTE MAN 0.81 K/mm3 (0.84-5.20); LYMPHOCYTES PERCENT MAN 13 % (21-46); METAMYELOCYTE ABSOLUTE MAN 0.05 K/mm3 (0.00-0.00); METAMYELOCYTE PERCENT MAN 1 % (0-0); MONOCYTES ABSOLUTE MAN 0.23 K/mm3 (0.16-1.47); MONOCYTES PERCENT MAN 4 % (4-13); SEG NEUTROPHILS PERCENT MAN 65 % (41-73); TOTAL CELLS COUNTED 100
[2023-11-07] MEDS ORDERED: VISBIOME 112.51 EACH PO (12:04)
[2023-11-07] MEDS ORDERED: LEVFLO500 PO (12:07)
[2023-11-07] MEDS ORDERED: LOPERAMIDE1 MG/7.10 PO (12:07)
--- NOTE | 2023-11-07 16:04 | NUR ---
SHIFT SUMMARY AND DISCHARGE PATIENT DISCHARGED HOME. PATIENT ALERT AND INDEPENDENT IN ROOM. PATIENT CONTINUES TO HAVE SALMON COLORED LIQUID STOOLS. PATIENT HAS OCCASIONAL ABDOMINAL CRAMPS. IV'S DC'D PRIOR TO DISCHARGE. DISCHARGE INSTRUCTIONS REVIEWED WITH PATIENT AND RX SENT TO [facility].
== END 2023-11-07 13:30 | disposition home or self-care (01) | DRG 871 ==
LOC: ER 16:27 → MEDS 16:28
PROVIDERS: Emergency Medicine; Internal Medicine; ADMIT Internal Medicine
DX: A41.9 Sepsis, unspecified organism (principal); G93.41 Metabolic encephalopathy; D84.821 Immunodeficiency due to drugs; K52.1 Toxic gastroenteritis and colitis; C79.9 Secondary malignant neoplasm of unspecified site; E86.0 Dehydration; T45.1X5A Adverse effect of antineoplastic and immunosuppressive drugs, initial encounter; I10 Essential (primary) hypertension; C43.9 Malignant melanoma of skin, unspecified; Z11.52 Encounter for screening for COVID-19
CPT/HCPCS: 0241U; 36415; 70450; 71046; 74176; 80048; 80053; 80202; 81001; 82945; 83605; 83735; 83880; 84100; 84145; 84157; 84484; 85025; 85610; 87040; 87070; 87205; 87483; 87507; 89051; 93005; 93010; 96360; 96361; 96365; 96366; 96367; 96368; 96375; 96376; 97116; 97161; 97165; 97530; 97535; 99285-25; A9270; G0378; J0133; J0290; J0692; J0696; J1100; J1956; J3370; J3480; J7030; J7050; J7060; P9612

== ENCOUNTER 2023-11-13 04:25 | Inpatient (IN) | payer OTHER ==
[~2023-11-13] VITALS: Ht 160 cm; Wt 72.2 kg
[2023-11-13] VITALS (50 sets, daily range): BP systolic 65–138; BP diastolic 33–91
[~2023-11-13 04:25] MED LIST changes: +AMLODIPINE BESYL5 MG PO; +LEVFLO500 PO; +LOPERAMIDE1 MG/7.10 PO; +MELATONIN5 M1 PO; +OLMESARTAN MEDO20 MG PO; +VISBIOME 112.51 EACH PO
[2023-11-13 04:53] LABS: Hematocrit 33.2 % (33.0-51.0); Hemoglobin 11.2 g/dL (11.5-16.0); Mean Corpuscular HGB 28.1 pg (26.0-34.0); Mean Corpuscular HGB Conc 33.7 g/dL (31.5-36.5); Mean Corpuscular Volume 83 fL (80-100); Mean Platelet Volume 11.5 fL (9.1-12.4); Platelet Count 109 K/mm3 (150-400); RDW Coefficient Variation 14.6 % (11.7-14.2); RDW Standard Deviation 44.5 fL (35.1-46.3); Red Blood Cell Count 3.98 M/mm3 (3.80-5.20); White Blood Cell Count 7.41 K/mm3 (4.00-11.30)
[2023-11-13 05:23] LABS: BAND PERCENT MAN 19 % (0-8); BASOPHILS PERCENT MAN 0 % (0-2); EOSINOPHILS ABSOLUTE MAN 0.07 K/mm3 (0.00-0.68); EOSINOPHILS PERCENT MAN 1 % (0-6); LYMPHOCYTES ABSOLUTE MAN 0.37 K/mm3 (0.84-5.20); LYMPHOCYTES PERCENT MAN 5 % (21-46); MONOCYTES ABSOLUTE MAN 0.37 K/mm3 (0.16-1.47); MONOCYTES PERCENT MAN 5 % (4-13); NEUTROPHILS ABSOLUTE MAN 6.59 K/mm3 (1.96-9.15); SEG NEUTROPHILS PERCENT MAN 70 % (41-73); TOTAL CELLS COUNTED 100
[2023-11-13 05:24] LABS: International Normalized Ratio 1.04; Prothrombin Time Results 10.9 Sec (9.7-11.5)
[2023-11-13 05:33] LABS: Albumin, Blood 1.3 g/dL (3.4-5.0); Albumin/Globulin Ratio 0.3 (0.8-1.8); Bilirubin, Total 0.5 mg/dL (0.1-1.0); Bun/Creatinine Ratio 19.3 (12.0-20.0); Calcium, Blood 8.3 mg/dL (8.5-10.1); Creatinine, Blood 4.97 mg/dL (0.40-1.00); Potassium, Blood 5.7 mmol/L (3.5-5.5); Total Protein, Blood 5.3 g/dL (6.4-8.2)
[2023-11-13 09:10] LABS: Source, Urine Clean Catch
[2023-11-13 09:18] LABS: Appearance, Urine Cloudy (Clear); Blood, Urine 2+ (Neg); Color, Urine Amber (P-Yellow); Glucose Qualitative, Urine Neg (Neg); Ketones, Urine Neg (Neg); Leukocyte Esterase, Urine 1+ (Neg); Nitrite, Urine Neg (Neg); Protein, Urine 2+ (Neg); Urobilinogen, Urine NORM (Normal)
[2023-11-13 09:33] LABS: Bilirubin, Urine 1+ (Neg)
[2023-11-13 09:42] LABS: Bacteria Many /hpf; Squamous Epithelial Cells Many /hpf (Few)
[2023-11-13 09:43] LABS: Amorphous Mod (0-Heavy); Transitional Epithelial Cells Mod /hpf (0-Rare)
[2023-11-13 09:44] LABS: Calcium Oxalate Crystals Mod /hpf; Yeast/Fungi Urine Rare /hpf
[2023-11-13 09:45] LABS: Renal Epithelial Rare /hpf (0-Rare)
[2023-11-13 11:20] LABS: Hematocrit 21.2 % (33.0-51.0)
[2023-11-13 12:00] LABS: Bun/Creatinine Ratio 19.3 (12.0-20.0); Calcium, Blood 7.5 mg/dL (8.5-10.1); Creatinine, Blood 4.61 mg/dL (0.40-1.00); Potassium, Blood 5.3 mmol/L (3.5-5.5)
--- NOTE | 2023-11-13 12:35 | NUR ---
ASSUMED CARE OF PATIENT: PATIENT ADMITTED AND INTERVENTIONS STARTED BY JOSE BENITEZ AND ANA WOODARD. ASSUMED CARE AT 12:35. PATIENT DOZING IN BED DURING PICC LINE INSERTION. SBPS 110 OR GREATER. MAPS >65. SPO2 >90%. PATIENT DENIES SHORTNESS OF BREATH. PATIENT IS SLOW TO RESPOND, BUT ANSWERING QUESTIONS APPROPRIATELY. PULSES IN ALL 4 EXTREMITIES. PATIENT RECEIVING IVFS AND UNIT OF PRBCS.
--- NOTE | 2023-11-13 13:40 | NUR ---
OFF UNIT TO SURGERY: PATIENT IS OFF THE UNIT FOR ABDOMINAL SURGERY WITH DR. SANTILLAN. PATIENT'S SAM AT BEDSIDE AND AWARE OF SURGICAL PLAN. UNIT OF BLOOD TO BE COMPLETED PRIOR TO LEAVING UNIT PER DR. CONTRERAS. PRBCS AND LITER BOLUS COMPLETED PRIOR TO LEAVING FOR OR SUITE. SBPS >105 AND MAPS GREATER THAN 65.
[2023-11-13 17:54] LABS: Base Excess Venous -9.7 mmol/L; Bicarbonate Venous 17.1 mmol/L (24.0-30.0); PCO2 Venous 40.6 mmHg (38-42); pH Blood Venous 7.25 (7.34-7.37)
[2023-11-13 17:56] LABS: Source, Urine Foley catheter
[2023-11-13 18:01] LABS: Hematocrit 34.1 % (33.0-51.0); Hemoglobin 11.7 g/dL (11.5-16.0); Mean Corpuscular HGB 28.9 pg (26.0-34.0); Mean Corpuscular HGB Conc 34.3 g/dL (31.5-36.5); Mean Corpuscular Volume 84 fL (80-100); Mean Platelet Volume 11.3 fL (9.1-12.4); Platelet Count 60 K/mm3 (150-400); RDW Coefficient Variation 14.6 % (11.7-14.2); RDW Standard Deviation 44.7 fL (35.1-46.3); Red Blood Cell Count 4.05 M/mm3 (3.80-5.20); White Blood Cell Count 4.11 K/mm3 (4.00-11.30)
[2023-11-13 18:26] LABS: Appearance, Urine Clear (Clear); Bilirubin, Urine Neg (Neg); Blood, Urine 3+ (Neg); Glucose Qualitative, Urine Neg (Neg); Ketones, Urine Neg (Neg); Leukocyte Esterase, Urine Neg (Neg); Nitrite, Urine Neg (Neg); Protein, Urine 1+ (Neg); Specific Gravity, Urine 1.015 (1.003-1.022); Urobilinogen, Urine NORM (Normal)
[2023-11-13 18:29] LABS: BAND PERCENT MAN 34 % (0-8); BASOPHILS PERCENT MAN 0 % (0-2); EOSINOPHILS PERCENT MAN 0 % (0-6); LYMPHOCYTES % ATYPICAL MANUAL 1 % (0-0); LYMPHOCYTES ABSOLUTE MAN 0.12 K/mm3 (0.84-5.20); LYMPHOCYTES PERCENT MAN 2 % (21-46); METAMYELOCYTE ABSOLUTE MAN 0.04 K/mm3 (0.00-0.00); METAMYELOCYTE PERCENT MAN 1 % (0-0); MONOCYTES ABSOLUTE MAN 0.08 K/mm3 (0.16-1.47); MONOCYTES PERCENT MAN 2 % (4-13); NEUTROPHILS ABSOLUTE MAN 3.86 K/mm3 (1.96-9.15); SEG NEUTROPHILS PERCENT MAN 60 % (41-73); TOTAL CELLS COUNTED 100
[2023-11-13 18:33] LABS: Albumin, Blood 1.1 g/dL (3.4-5.0); Albumin/Globulin Ratio 0.4 (0.8-1.8); Bilirubin, Total 1.1 mg/dL (0.1-1.0); Bun/Creatinine Ratio 21.2 (12.0-20.0); Calcium, Blood 6.8 mg/dL (8.5-10.1); Color, Urine Pale Yellow (P-Yellow); Creatinine, Blood 3.54 mg/dL (0.40-1.00); Globulin, Blood 2.8 g/dL (2.2-4.0); Magnesium, Blood 1.7 mg/dL (1.6-2.4); Phosphorus, Blood 7.1 mg/dL (2.5-4.9); Potassium, Blood 4.3 mmol/L (3.5-5.5); Total Protein, Blood 3.9 g/dL (6.4-8.2)
[2023-11-13 18:39] LABS: Bacteria Mod /hpf; Granular Casts 0-2 /lpf (0); Squamous Epithelial Cells Not Seen /hpf (Few)
--- NOTE | 2023-11-13 19:15 | NUR ---
SHIFT SUMMARY: NEURO: PRIOR TO SURGERY, PATIENT SLOW TO RESPOND AND ANSWERED QUESTIONS IN SHORT, SIMPLE SENTENCES. PATIENT DENIED PAIN AND DISCOMFORT. POST SURGERY, PATIENT PUPILS RESPONSIVE TO LIGHT. PER DR. ALBRIGHT, PARALYTIC WAS CONTINUING TO AFFECT THE PATIENT. NO NEURO RESPONSE TO VOICE. NO MOVEMENT OF LIMBS NOTED. PROPOFOL GTT FOR SEDATION STARTED AT 15 MCG/KG/MIN. CARDIAC: PATIENT RETURNED TO THE UNIT WITH LOW SBPS AND LOW MAPS. SHE HAD RECEIVED NOREPI IN THE OR TO SUPPORT BPS. DISCUSSED WITH DR. ALBRIGHT. PATIENT STARTED ON LEVOPHED GTT. BY THE END OF SHIFT, PATIENT ON 10 MCG/MIN WITH MAPS >65. HR IN THE 90S TO LOW 100S. PULSES PRESENT IN ALL 4 EXTREMITIES. RESPIRATORY: PATIENT REMAINED INTUBATED POST SURGERY. ETT OF 7.0CM IN SIZE PLACED AT 23.0 CM AT THE UPPER TEETH. VENT SETTINGS: AC/VC 14/430/5/45%. SPO2 >94%. LUNG SOUNDS CLEAR AND DIMINISHED IN THE BASES. GI/: BRIONES IN PLACE AND DRAINING FREELY A LIGHT YELLOW URINE. NO SEDIMENT NOTED. END ILEOSTOMY IN RUQ. SCANT DARK, LIQUID OUTPUT. OSTOMY IS BEEF RED IN COLOR. OG TUBE IN PLACE TO LIS. SMALL AMOUNT OF ALINE BLOOD NOTED IN TUBING. NO RECTAL DIARRHEA PRIOR TO SURGERY. NO BOWEL SOUNDS NOTED POST SURGERY. PSYCHSOCIAL: PATIENT'S AT BEDSIDE THIS AFTERNOON. HE WAS UPDATED BY DR. SANTILLAN POST SURGERY. HE REPORTS THAT HE WILL COME IN TOMORROW TO VISIT THE PATIENT AND BRING IN HER MEDICATION LIST.
--- NOTE | 2023-11-13 20:41 | NUR ---
ASSUMED CARE AT 1900 PATIENT IS INTUBATED AND SEDATED ON PROPOFOL. PARALYTIC IN SURGERY, NO MOVEMENT AT THIS TIME. PUPILS EQUAL AND REACTIVE. VENT AC VC 14/430/5/40%, RR 14. NO SECRETIONS. LS CLEAR TO DIMINISHED. HR SR-ST 90s-110. BP WITH MAP >65 ON LEVO AND LR INF AT 150. NG TO LIS WITH SCANT RED OUTPUT. BRIONES PATENT AND DRAINING TO GRAVITY. RECTAL TEMP PROBE IN PLACE, AFEBRILE. REPOSITIONED. CALL LIGHT IN REACH
[2023-11-13 23:28] LABS: Hematocrit 37.1 % (33.0-51.0); Hemoglobin 12.8 g/dL (11.5-16.0)
[2023-11-14] VITALS (88 sets, daily range): BP systolic 57–131; BP diastolic 26–106
[2023-11-14 03:27] LABS: Base Excess Venous -13.7 mmol/L; PCO2 Venous 30.7 mmHg (38-42); pH Blood Venous 7.25 (7.34-7.37)
[2023-11-14 03:30] LABS: Hematocrit 40.8 % (33.0-51.0); Hemoglobin 13.6 g/dL (11.5-16.0); Mean Corpuscular HGB 28.7 pg (26.0-34.0); Mean Corpuscular HGB Conc 33.3 g/dL (31.5-36.5); Mean Corpuscular Volume 86 fL (80-100); RDW Coefficient Variation 14.9 % (11.7-14.2); RDW Standard Deviation 47.5 fL (35.1-46.3); Red Blood Cell Count 4.74 M/mm3 (3.80-5.20); White Blood Cell Count 8.68 K/mm3 (4.00-11.30)
[2023-11-14 04:01] LABS: Albumin, Blood 1.1 g/dL (3.4-5.0); Albumin/Globulin Ratio 0.4 (0.8-1.8); Bilirubin, Total 1.5 mg/dL (0.1-1.0); Bun/Creatinine Ratio 21.4 (12.0-20.0); Calcium, Blood 8.1 mg/dL (8.5-10.1); Creatinine, Blood 3.51 mg/dL (0.40-1.00); Globulin, Blood 3.1 g/dL (2.2-4.0); Total Protein, Blood 4.2 g/dL (6.4-8.2)
[2023-11-14 04:20] LABS: Platelet Count 42 K/mm3 (150-400)
[2023-11-14 04:25] LABS: BAND PERCENT MAN 16 % (0-8); BASOPHILS PERCENT MAN 0 % (0-2); EOSINOPHILS PERCENT MAN 0 % (0-6); LYMPHOCYTES ABSOLUTE MAN 0.52 K/mm3 (0.84-5.20); LYMPHOCYTES PERCENT MAN 6 % (21-46); MONOCYTES PERCENT MAN 7 % (4-13); NEUTROPHILS ABSOLUTE MAN 7.55 K/mm3 (1.96-9.15); SEG NEUTROPHILS PERCENT MAN 71 % (41-73); TOTAL CELLS COUNTED 100
--- NOTE | 2023-11-14 06:16 | NUR ---
SHIFT SUMMARY PATIENT REMAINS INTUBATED AND SEDATED ON PROPOFOL. LOCALIZES TO PAIN AND OPENS EYES BRIEFLY TO VERBAL STIMULI. SHAKE HEAD NO WHEN ASKED IF SHE IS IN PAIN. VENT AC VC 14/430/5/40%, RR 15, SCANT SECRETIONS. HR SR-ST 90s-110. BP VERY LABILE LEVO 16 MCG/MIN, VASO INF, LR AT 150 MLS/HR. NG TO LIS WITH SCANT RED BILE. ILEOSOTOMY WITH SCANT DARK LIQUID OUTPUT. CANDI DRESSING WITH SMALL SPOT OF RED, OTHERWISE C/D/I. BRIONES PATENT AND DRAINING TO GRAVITY. TMAX VIA RECTAL TEMP 100.0 F, FAN AND ICE PACKS, TEMP NOW 99.[address] Q[address] HOU[address] ALBRIGHT NOTIFIED OF AM LABS. CALL LIGHT IN REACH
--- NOTE | 2023-11-14 08:30 | NUR ---
ASSUMED CARE BEDSIDE REPORT FROM LUZMARIA SKELTON AT 0700. PT INTUBATED AND SEDATED. VENT SETTINGS AC/VC 14/430/5/40%. LUNGS CLEAR. SCANT SECRETIONS FROM ETT. PROPOFOL INFUSING, RASS -4. PT OPENS EYES TO VOICE, DOES NOT FOLLOW COMMANDS. COUGH/GAG REFLEX PRESENT. SR/ST ON MONITOR, RATE 90-100'S. LEVO AND VASO GTT INFUSING FOR MAP>65. NGT TO RIGHT NARE, LIS, SCANT EMESIS OUT. ABD ROUND, SOFT, NON TENDER. HYPO ACTIVE BT X 4. ILLEOSTOMY TO RIGHT ABD, STOMA PINK, ROUND. LIQUID BROWN STOOL OUT, SENT TO LAB TO R/O CDIFF. CANDI DRESSING MIDLINE ABD, SUCTION IN PLACE. SCANT DRAINAGE TO DRESSING. BRIONES PATENT, DRAINING YELLOW URINE c SEDIMENT TO GRAVITY. EXT COOL, DIFFICULT TO OBTAIN O2 SATS, MULTIPLE PROBES ATTEMPTED. PICC TO LUE, DRESSING C/D/I. WILL CONTINUE TO MONITOR.
[2023-11-14 10:18] LABS: Adenovirus F 40/41 Not Detected (NOT DETECT); Astrovirus Not Detected (NOT DETECT); Campylobacter Sp Not Detected (NOT DETECT); Cryptosporidium Not Detected (NOT DETECT); Cyclospora Cayetanensis Not Detected (NOT DETECT); E. Coli O157 Not Detected (NOT DETECT); Entamoeba Histolytica Not Detected (NOT DETECT); Enteroaggregative E. coli-EAEC Not Detected (NOT DETECT); Enteropathogenic E. coli-EPEC Not Detected (NOT DETECT); Enterotoxigenic E. coli-ETEC Not Detected (NOT DETECT); Giardia Lamblia Not Detected (NOT DETECT); Norovirus GI/GII Not Detected (NOT DETECT); Plesiomonas Shigelloides Not Detected (NOT DETECT); Rotavirus A Not Detected (NOT DETECT); Salmonella Sp Not Detected (NOT DETECT); Sapovirus Not Detected (NOT DETECT); Shiga Toxin-prod E. coli-STEC Not Detected (NOT DETECT); Shigella/Enteroin E. coli-EIEC Not Detected (NOT DETECT); Vibrio Cholerae Not Detected (NOT DETECT); Vibrio Sp Not Detected (NOT DETECT); Yersinia Enterocolitica Not Detected (NOT DETECT)
--- NOTE | 2023-11-14 17:40 | NUR ---
SHIFT SUMMARY/EXTUBATION PT EXTUBATED THIS SHIFT, TOLERATED WELL. 4L VIA NC. WEAK COUGH, ENCOURAGED DEEP BREATHING AND COUGH. ABLE TO FOLLOW COMMANDS. ABLE TO ANSWER YES NO QUESTIONS. DENIES PAIN. WHEN ASKING ORIENTATION QUESTIONS, PT BECOMES DISCOURAGED AND IRRITABLE. RETURNS TO SLEEP WHEN UNDISTURBED. ST, RATE 100-110'S. LEVO GTT FOR MAP>65, VASO ON STANDBY. LR AND BICARB IVF INFUSING. ABD ROUND, SOFT, NONTENDER, HYPOACTIVE BT X 4. SMALL AMOUNT OF LIQUID BROWN STOOL IN APPLIANCE. CDIFF R/O THIS SHIFT. BRIONES PATENT, DRAINING CLEAR YELLOW URINE TO GRAVITY. CANDI DRESSING REMAINS INTACT, NO CHANGES. NGT TO LIS, SCANT DRAINAGE OUT. PICC TO LUE, DRESSING C/D/I. WILL CONTINUE TO MONITOR UNTIL REPORT TO ONCOMING NURSE.
--- NOTE | 2023-11-14 21:00 | NUR ---
ASSUMED CARE CARE ASSUMED AT 1900, REPORT GIVEN BY CAT SKELTON. PT AWAKENS TO VERBAL STIMULI, A/O X1-2. PT ABLE TO SAY THAT SHE IS IN [place] BUT UNABLE TO STATE SHE IS IN THE HOSPITAL. PT FALLS ASLEEP QUICKLY WHEN NOT BEING SPOKEN TO. PT DENIES PAIN AT THIS TIME. PT ON 4 L N/C, O2 SATS > 90%. WEAK, NON-PRODUCTIVE, OCCASIONAL COUGH. CARDIAC MONITORING REFLECTS SINUS TACH. HR 100s. LEVOPHED INFUSING FOR MAP GOAL > 65, SEE FLOWSHEET. NG IN PLACE, SET TO LIS. MINIMAL OUTPUT. TEMP BRIONES PATENT AND DRAINING TO GRAVITY. 1+ EDEMA NOTED IN BILAT FEET AND HANDS. IV FLUIDS INFUSING THROUGH PICC. PIV SL. CANDI DRESSING TO MID ABD. PATENT. SMALL AMOUNT OF SANGUINOUS DRAINAGE NOTED AND MARKED ON DRESSING. SMALL AMOUNT OF BROWN, LIQUID DRAINAGE NOTED THROUGH ILLEOSTOMY.
--- NOTE | 2023-11-14 22:00 | NUR ---
CALL TO DR. ALBRIGHT PT HAVING INCREASING EXPIRATORY WHEEZES AND COARSE LUNG JURADO T/O. O2 SATS DROPPING OCCASIONALLY TO 88%. PT DENIES SOB. CALL TO DR. ALBRIGHT TO NOTIFY, ORDERS RECIEVED.
[2023-11-15] VITALS (89 sets, daily range): BP systolic 77–119; BP diastolic 47–86
[2023-11-15 03:31] LABS: Hematocrit 32.7 % (33.0-51.0); Mean Corpuscular HGB 28.6 pg (26.0-34.0); Mean Corpuscular HGB Conc 33.6 g/dL (31.5-36.5); Mean Corpuscular Volume 85 fL (80-100); Mean Platelet Volume 12.3 fL (9.1-12.4); RDW Standard Deviation 46.7 fL (35.1-46.3); Red Blood Cell Count 3.85 M/mm3 (3.80-5.20); White Blood Cell Count 5.65 K/mm3 (4.00-11.30)
[2023-11-15 03:51] LABS: Platelet Count 33 K/mm3 (150-400)
[2023-11-15 03:53] LABS: Albumin/Globulin Ratio 0.3 (0.8-1.8); Bilirubin, Total 1.1 mg/dL (0.1-1.0); Bun/Creatinine Ratio 22.4 (12.0-20.0); Creatinine, Blood 2.9 mg/dL (0.40-1.00); Globulin, Blood 3.2 g/dL (2.2-4.0); Magnesium, Blood 1.8 mg/dL (1.6-2.4); Phosphorus, Blood 7.1 mg/dL (2.5-4.9); Potassium, Blood 3.7 mmol/L (3.5-5.5); Total Protein, Blood 4.2 g/dL (6.4-8.2)
[2023-11-15 04:26] LABS: BAND PERCENT MAN 10 % (0-8); BASOPHILS PERCENT MAN 0 % (0-2); EOSINOPHILS PERCENT MAN 0 % (0-6); LYMPHOCYTES % ATYPICAL MANUAL 1 % (0-0); LYMPHOCYTES ABSOLUTE MAN 0.84 K/mm3 (0.84-5.20); LYMPHOCYTES PERCENT MAN 14 % (21-46); MONOCYTES ABSOLUTE MAN 0.11 K/mm3 (0.16-1.47); MONOCYTES PERCENT MAN 2 % (4-13); NEUTROPHILS ABSOLUTE MAN 4.68 K/mm3 (1.96-9.15); SEG NEUTROPHILS PERCENT MAN 73 % (41-73); TOTAL CELLS COUNTED 100
--- NOTE | 2023-11-15 05:36 | NUR ---
CALL TO DR. JOSE RAMON ALBRIGHT NOTIFIED BY THIS RN REGARDING PT'S AFIB AND SUSTAINING HR IN THE 130s. ALSO NOTIFIED OF PT'S POSITIVE FLUID BALANCE, ORDER TO DC LR.
--- NOTE | 2023-11-15 06:05 | NUR ---
SHIFT SUMMARY PT A/O X2-3. PT ABLE TO NOW SAY THAT SHE IS IN THE HOSPITAL. PT STILL SLOW TO RESPOND BUT ABLE TO FOLLOW COMMANDS. PT HAS DENIED PAIN THIS SHIFT. PT ON 4 L N/C, O2 SATS > 93%. LUNG JURADO COARSE T/O. PT HAS WEAK, NON-PRODUCTIVE COUGH. PT DENIES SOB/CP. CARDIAC MONITORING REFLECTS AFIB AT THIS TIME, HR 120s-130s. DR. ALBRIGHT AWARE, SEE NURSE NOTE. LEVOPHED GTT INFUSING FOR MAP GOAL > 65, SEE FLOWSHEET. NG SET TO LIS, SMALL AMOUNT OF BILE IN CANISTER THAT IS UNMEASURABLE. CANDI DRESSING INTACT AND PATENT. DRAINAGE SLIGHTLY INCREASED AROUND PREVIOUSLY NOTED SANGUINOUS SPOT ON CANDI. 45 mL OF BROWN/GREEN OUTPUT FROM ILLEOSTOMY THIS SHIFT. BRIONES PATENT AND DRAINING TO GRAVITY.
--- NOTE | 2023-11-15 08:00 | NUR ---
INITIAL ASSESSMENT PATIENT RESTING QUIETLY IN BED UPON ENTERING ROOM. PATIENT RESPONDS TO VERBAL STIMULI. PATIENT ORIENTED TO SELF, FAMILY, TOWN AND HOSPITAL. PATIENT STATES THE YEAR IS 2022. PATIENT AFEBRILE. PATIENT CALM, COOPERATIVE; FLAT AFFECT NOTED. PATIENT DENIES ANY PAIN OR DISCOMFORT. LUNGS COARSE AND WHEEZY THROUGHOUT. PATIENT SATTING 90% AND GREATER ON 4 L NC. PATIENT HAS WEAK, MOIST, NONPRODUCTIVE COUGH. PATIENT IN A. FIB, HR IN THE 130S. SBP 80S TO LOW 100S. LEVOPHED INFUSING AT 12 MCG/ HOUR. SCDS IN PLACE. 1+ EDEMA NOTED TO HANDS AND BLES. ABD MILDLY DISTENDED. CANDI TO MIDLINE ABD; SMALL AMOUNT OF DRAINAGE NOTED AND OUTLINES IN MARKER; DRAINAGE DOES CONTINUE TO INCREASE. RLQ ILEOSTOMY IN PLACE; MINIMAL OUTPUT OF GREEN/ BROWN LIQUID NOTED. NG IN PLACE TO LIS; NO DRAINAGE NOTED. MOUTH COATED/ PLAQUE. MOUTH VERY DRY; ORAL CARE PERFORMED. BRIONES IN PLACE DRAINING YELLOW COLORED URINE WITH SEDIMENT NOTED. SKIN PALE AND COOL. SCATTERED BRUISES NOTED. ABRASION TO BOTH SIDES OF COCCYX; MEPILEX APPLIED. NAIL BEDS DUSKY. SODIUM BICARB INFUSING AT 50 MLS/ HOUR. BED LOW, CALL LIGHT IN REACH. CARE CONTINUES.
--- NOTE | 2023-11-15 08:36 | NUR ---
DR. ALBRIGHT UPDATED ON PATIENT STATUS AND IN ROOM TO SEE PATIENT. DR. ALBRIGHT INFORMED THAT PATIENT LUNGS COARSE AND WHEEZY THIS AM. INFORMED THAT PATIENT DENIES PAIN. INFORMED THAT PATIENT IN A. FIB WITH HR 130S TO 140S THIS AM. INFORMED THAT PATIENT ON LEVOPHED AT 11 MCG/ MINUTES. INFORMED THAT FACULTY I ON CALL MEDICAL ASSISTANT RN STATED PATIENT LUNGS SOUNDED A LITTLE LESS WET AFTER DOSE OF LASIX ON FACULTY I ON CALL MEDICAL ASSISTANT BUT URINE OUTPUT REALLY DID NOT INCREASE. INFORMED THAT PATIENT HAD 470 MLS OF URINE OUTPUT ON FACULTY I ON CALL MEDICAL ASSISTANT. INFORMED THAT ILEOSTOMY PUT OUT 45 MLS OF LIQUID STOOL. STATED TO GO AHEAD AND START VASOPRESSIN FOR LEVOPHED OVER 5 MCG/ MINUTE.
[2023-11-15] MEDS ORDERED: HIGH POTENCY P1 EAC2 PO (09:51)
[2023-11-15] MEDS ORDERED: ZOFRAN8 MG PO (09:54)
[2023-11-15] MEDS ORDERED: HYDR1TAB94 PO (09:55)
[2023-11-15] MEDS ORDERED: OLME20 PO (09:56)
[2023-11-15] MEDS ORDERED: AMLO5 PO (09:57)
--- NOTE | 2023-11-15 11:00 | NUR ---
Initial palliative care consult: Cindi is a 72 year old who was admitted on 11/13/23 with colitis and perf bowel status post a treatment of immunotherapy for her metastatic melanoma. Cindi has a history of several melanomas that were removed in the past. Her reports she has a large melanoma under her left armpit area currently. Cindi is quite drowsy during the conversation. She is able to answer some questions appropriately however her Robert reports that she isn't her usual self. Cindi drifts off to sleep after answering some of the questions. Spoke with Robert at length about her history and home life. Robert and Cindi have been about 20 years. They both have their own adult children, one of whom lives in the area. They have a network of friends and feel well supported at home. Robert reports prior to this admission Cindi was evaluated in the ER and sent home. Robert is upset by this as Cindi continued to get more ill and returned to the ER. Cindi was admitted on 11/13/23 and had a colectomy with ostomy placed. She is currently in the ICU. She was successfully extubated yesterday. 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 They manage household duties together. Robert reports that they have DME in the home that they own from prior surgeries. Robert reports the goal is to get Cindi home and to continue with another immunotherapy agent to treat her melanoma. He states that this melanoma, PET scan and recent immunotherapy treatment have all happened in the last [address] Fields is Cindi's oncologist. While Cindi slept, this conventional underwriter spoke with Robert at bedside. 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 He reports that he is used to being able to make decisions and be in control of situations at work. Allowed him to verbalize his feelings of fear and lack of control in the current situation. He reports he is having trouble sleeping at night due to Cindi's current medical situation. Emotional support provided. Explained current situation and that Cindi's recovery would be lengthly and full of ups and downs. Robert verbalized understanding. He reports that he wants Cindi to come home when she is discharged and not have her go to a alf. He reports he is retired and is willing to take care of her. Briefly touched on advanced care planning. Robert reports that he and Cindi have never had any conversations about what each of them would want for medical care. He states that their ususal conversations usually discuss where they would like to travel for their next vacation. Discussed quality of life and goals with cancer treatments. At this time Robert reports that Cindi is a full code and that she would want everything done. Current plan is to continue with full treatments. They will plan to follow up with Dr. Fields for continued cancer treatments when Cindi is well enough to continue with them. Will continue to encourage self care for Robert and rest for Cindi. Robert states it is very difficult to come into the ICU and see Cindi lying in bed being ill. Emotional support provided. PC will continue to follow and assist with advanced care planning and symptom management.
--- NOTE | 2023-11-15 12:00 | NUR ---
DR. SANTILLAN HERE TO ASSIST PATIENT. INFORMED THAT CANDI DRESSING DRAINAGE CONTINUES TO INCREASE SLOWLY. NO ORDERS RECEIVED AT THIS TIME. DR. SANTILLAN STATED HE WOULD CHANGE DRESSING TOMORROW.
--- NOTE | 2023-11-15 12:30 | NUR ---
PATIENT AFEBRILE. PATIENT DENIES ANY PAIN OR DISCOMFORT. PATIENT ON 4 TO 6 L NC TO KEEP SATS 90% AND GREATER. PATIENT GIVEN CARDIZEM PT SHORT TIME AGO. PATIENT HAS CONVERTED FROM A. FIB TO SR. DR. ALBRIGHT AWARE. HR LOW 100S TO 130S. SBP 80S TO 90S. LEVOPHED AT 4 MCG/ MINUTE. VASOPRESSIN ON SB. CARE CONTINUES.
--- NOTE | 2023-11-15 16:10 | NUR ---
PATIENT AFEBRILE. HR 90S TO LOW 100S. SBP IN THE 80S. LEVOPHED AT 7 MCG/ MINUTE AND VASOPRESSIN AT 0.04 UNITS/ MINUTE. TRICKLE TUBE FEEDS STARTED. NO OTHER ACUTE CHANGES TO NOTE ON AT THIS TIME. CARE CONTINUES.
--- NOTE | 2023-11-15 17:52 | NUR ---
SHIFT SUMMARY PATIENT REMAINS LETHARGIC BUT RESPONDING TO VERBAL STIMULI. PATIENT CONTINUES TO ANSWER THAT THE YEAR IS 2022 BUT DOES ANSWER SELF, FAMILY, TOWN AND PLACE QUESTIONS CORRECTLY. PATIENT HAS REMAINED AFEBRILE. SPEECH REMAINS SLURRED. PATIENT REMAINS WEAK BUT ABLE TO MOVE ALL EXTREMITIES. PATIENT HAS DENIED ANY PAIN OR DISCOMFORT THIS SHIFT. PATIENT HAS SATTED 90% AND GREATER ON 4 TO 6 L NC THIS SHIFT. PATIENT HAS CONTINUED WITH WEAK COUGH. PATIENT IN A. FIB THIS AM BUT CONVERTED TO SR AT 1230 AFTER PT CARDIZEM STARTED. HR 90S TO 140S THIS SHIFT. SBP 80S TO 1-TEENS. LEVOPHED AND VASOPRESSIN TO KEEP MAPS 65 AND GREATER. VASOPRESSIN CURRENTLY ON SB AND LEVOPHED AT 5 MCG/ MINUTE. 10 MLS OF BROWN/ GREEN, LIQUID DRAINAGE OUT FROM ILEOSTOMY THIS SHIFT. DRAINAGE ON CANDI DRESSING CONTINUES TO EXPAND SLOWLY; DR. SANTILLAN AWARE. NG TO LIS THIS AM. THIS AFTERNOON TRICKLE TUBE FEEDS STARTED. BRIONES DRAINED 1000 MLS OF YELLOW COLORED URINE WITH SEDIMENT NOTED. NO CHANGES TO SKIN NOTED. PATIENT REPOSITIONED Q2H. PATIENT HAD COMPLETE CHG BED BATH. SODIUM BICARB DC'D THIS SHIFT. PATIENT RECEIVED 2 G CALCIUM REPLACEMENT THIS SHIFT. MED REC COMPLETED THIS SHIFT. PALLIATIVE CARE NURSE SPOKE WITH PATIENT AND THIS SHIFT. HERE TO VISIT TWICE. BED LOW, CALL LIGHT IN REACH. NO SIGNS OF PAIN OR DISTRESS AT THIS TIME. REPORT WILL BE GIVEN TO ASSUMING MOLDING SANDER NURSE SHORTLY.
--- NOTE | 2023-11-15 20:16 | NUR ---
ASSUMED CARE ASSUMED CARE AT 1900. PT A/O TO SELF AND FAMILY. WHEN ASKED OTHER QUESTIONS, PT WILL STARE STRAIGHT FORWARD AND STAY SILENT. WILL FOLLOW SIMPLE COMMANDS. FLAT AFFECT AND ONLY STATED ONE-TWO WORDS AT A TIME. PT DENIES PAIN. VASOPRESSIN AND LEVOPHED GTT INFUSING FOR MAP GREATER THEN 65. SEE FLOWSHEET FOR RATE AND TITRATIONS. VSS. SBP 80-90'S. SR RATE 90'S. ON 4L VIA NC WITH SPO2 GREATER THEN 90%. LUNGS COURSE AND WHEEZY. AUDIBLE SECRETIONS CLEARED BY PT AFTER MULTIPLE ATTEMPTS. WEAK COUGH. CANDI DRSG TO MIDLINE. DRAINAGE MARKED. ILEOSTOMY OUTPUT BILE/GREEN. NGT WITH TF AT GOAL. BRIONES PATENT AND DRAINING TO GRAVITY.
[2023-11-16] VITALS: BP 89/59
[2023-11-16 00:15] VITALS: BP 85/59
--- NOTE | 2023-11-16 01:49 | NUR ---
CALL TO HOSP CALL TO HOSP REGARDING PT BEING LESS RESPONSIVE, NOT FOLLOWING COMMANDS, INCREASE IN VASOPRESSORS, AND LAST VBG ON THE 5TH WITH CRITICAL PH. ORDER TO DRAW VBG NOW.
[2023-11-16 02:17] LABS: Hematocrit 35.8 % (33.0-51.0); Hemoglobin 11.2 g/dL (11.5-16.0); Mean Corpuscular HGB 28.1 pg (26.0-34.0); Mean Corpuscular HGB Conc 31.3 g/dL (31.5-36.5); NRBC ABSOLUTE 0.03 K/mm3 (0.00-0.02); NRBC Auto 0.3 /100 WBC (0.0-0.2); RDW Coefficient Variation 15.7 % (11.7-14.2); RDW Standard Deviation 51.9 fL (35.1-46.3); Red Blood Cell Count 3.99 M/mm3 (3.80-5.20); White Blood Cell Count 10.88 K/mm3 (4.00-11.30)
[2023-11-16 02:22] LABS: Mean Corpuscular Volume 90 fL (80-100); pH Blood Venous 7.14 (7.34-7.37)
[2023-11-16 02:23] LABS: Base Excess Venous -0.8 mmol/L; Bicarbonate Venous 22.4 mmol/L (24.0-30.0); Mean Platelet Volume 13.7 fL (9.1-12.4); PCO2 Venous 83.5 mmHg (38-42); Platelet Count 28 K/mm3 (150-400)
[2023-11-16 02:40] LABS: Magnesium, Blood 1.8 mg/dL (1.6-2.4)
[2023-11-16 02:41] LABS: Albumin/Globulin Ratio 0.3 (0.8-1.8); Bilirubin, Total 0.8 mg/dL (0.1-1.0); Bun/Creatinine Ratio 25.3 (12.0-20.0); Calcium, Blood 7.9 mg/dL (8.5-10.1); Creatinine, Blood 2.41 mg/dL (0.40-1.00); Globulin, Blood 3.5 g/dL (2.2-4.0); Total Protein, Blood 4.5 g/dL (6.4-8.2)
[2023-11-16 02:55] LABS: BAND PERCENT MAN 19 % (0-8); BASOPHILS PERCENT MAN 0 % (0-2); EOSINOPHILS PERCENT MAN 0 % (0-6); LYMPHOCYTES ABSOLUTE MAN 0.43 K/mm3 (0.84-5.20); LYMPHOCYTES PERCENT MAN 4 % (21-46); METAMYELOCYTE PERCENT MAN 1 % (0-0); MONOCYTES ABSOLUTE MAN 0.54 K/mm3 (0.16-1.47); MONOCYTES PERCENT MAN 5 % (4-13); NEUTROPHILS ABSOLUTE MAN 9.79 K/mm3 (1.96-9.15); SEG NEUTROPHILS PERCENT MAN 71 % (41-73); TOTAL CELLS COUNTED 100
--- NOTE | 2023-11-16 04:11 | NUR ---
CODE BLUE WHILE DRAWING LABS HOSP CALLED STATING TO DO STAT HEAD CT AND STOP TF. TF STOPPED AND CT CALLED. PT NOTED TO BE "GUPPY" BREATHING. CHARGE NURSE AT BEDSIDE. RT AND HOSP CALLED AND ASKED TO COME TO BEDSIDE. PT VSS. PT STATING YES WHEN ASKING HER NAME AND WILL SLIGHTLY TURN HER HEAD TOWARDS THE SOUND AT THAT TIME. NOT FOLLOWING DIRECTIONS OR STATING ANYTHING ELSE. HOSP AND RT AT BEDSIDE. VBG RESULTS CAME BACK WITH CRITICAL PH OF 7.13. LAB CALLED WITH CRITICAL PLT 28 AT 0222. CALLED MULTIPLE TIMES W/O ANSWER. DECISION MADE TO INTUBATE AT 0237. 10 OF ETOMIDATE 0244, AND 60 OF ROCC AT 0245. INTUBATED AT 0246 WITH 7.5CM ETT 22CM AT TEETH, POSITIVE BREATH SOUNDS BILATERALLY, POSITIVE COLOR CHANGE, AND NEGATIVE GASTRIC SOUND. 0248 LEVOPHED AT 30MCG/MIN, VASPRESSIN GTT, AND NS BOLUS. BP 64/42(50) AND HR 90. 0251 PEA ARREST, CPR STARTED. SEE CODE SHEET FOR CODE BLUE INFORMATION. 0308 DNR STATUS PER HOSP. DURING CODE HOSPITAL CONSUMER LENDING MANAGER CALLED MULTIPLE TIMES. REACHED AFTER CODE ENDED AND AT BEDSIDE SHORTLY AFTER. PT MADE COMFORT CARE STATUS PER WISHES. ETT REMOVED AND MEDICATIONS STOPPED. RN IN ROOM UNTIL PT HEART STOPPED AT 0359. TWO-RN VERIFICATION DONE. VACUUM TECHNICIAN TALKED TO REGARDING WHAT HAPPENED. PT WALKING THE UNIT, DECLINED BEING IN ROOM AFTER EXTUBATION. ASKING FOR THE CURTAIN TO BE CLOSED "SO I DON'T HAVE TO SEE HER", REPEATEDLY ASKING "WHAT HAPPENED?", "WHAT ARE YOU TELLING ME?". WHEN OFFERED CHAIR/TISSUES, SHAKES HIS HEAD AND CONTINUES WALKING THE UNIT. PASTORAL CARE AND SECURITY CALLED AND IN UNIT. HUSBANDS DAUGHTER IN UNIT AND PT BELONGINGS SENT HOME WITH HER.
--- NOTE | 2023-11-16 04:45 | NUR ---
Upon responding to a call-back from Hospital RN Wound Nurse Bina, I arrive in ICU and find security is present. Patient minutes before I arrive and spouse, Robert, I am told is speaking and geturing aggresively and making the ICU staf feel unsafe. I visit with Robert in the hallway just outside of ICU and he tells me about their 22 yrs of being together, how angry he is at the doctors, God and the hospital staff who "caused her ." We explore the history of her illness and the gaols and intents of the treatments and care the pt received. Robert's dtr, Genevieve arrives and offers comfort to Robert and requests pt's belongings. I provide those items to herand begin the discussion about selecting a home. Robert tells me that he doesn't need me to be present and to get away from him. Which I do. I return shortly and ask Genevieve if she had any questions for the chief of staff doctor about the preceeding events that led to pt's demise. SHe comes into the ICU and has a discussion with ICU Charge Drea. I Follow up that conversation with further grief support and distribute grief support material to her. I walk them down the hallway as they depart.
== END 2023-11-16 03:59 | DRG 853 ==
LOC: ER 04:25 → ICUE 05:58 → ERHOLD 05:58 → ICUE 05:58
PROVIDERS: Emergency Medicine; Family Medicine; Hospitalist; Internal Medicine Critical Care Medicine; Surgery; ADMIT Internal Medicine
PROC: 0D1B0Z4 Bypass Ileum to Cutaneous, Open Approach (ICD-10-PCS; 2023-11-13)
PROC: 30233N1 Transfusion of Nonautologous Red Blood Cells into Peripheral Vein, Percutaneous Approach (ICD-10-PCS; 2023-11-13)
PROC: 3E033XZ Introduction of Vasopressor into Peripheral Vein, Percutaneous Approach (ICD-10-PCS; 2023-11-13)
PROC: 3E03329 Introduction of Other Anti-infective into Peripheral Vein, Percutaneous Approach (ICD-10-PCS; 2023-11-13)
PROC: 02HV33Z Insertion of Infusion Device into Superior Vena Cava, Percutaneous Approach (ICD-10-PCS; 2023-11-13)
PROC: 0DTE0ZZ Resection of Large Intestine, Open Approach (ICD-10-PCS; principal; 2023-11-13 13:00)
PROC: 5A12012 Performance of Cardiac Output, Single, Manual (ICD-10-PCS; 2023-11-16)
PROC: 0BH17EZ Insertion of Endotracheal Airway into Trachea, Via Natural or Artificial Opening (ICD-10-PCS; 2023-11-16)
PROC: 5A1935Z Respiratory Ventilation, Less than 24 Consecutive Hours (ICD-10-PCS; 2023-11-16)
DX: A41.9 Sepsis, unspecified organism (principal); K63.1 Perforation of intestine (nontraumatic); R65.21 Severe sepsis with septic shock; K65.9 Peritonitis, unspecified; N17.0 Acute kidney failure with tubular necrosis; Z51.5 Encounter for palliative care; Z66 Do not resuscitate; K52.1 Toxic gastroenteritis and colitis; C79.2 Secondary malignant neoplasm of skin; E87.20 Acidosis, unspecified; I47.20 Ventricular tachycardia, unspecified; R18.8 Other ascites; T45.1X5A Adverse effect of antineoplastic and immunosuppressive drugs, initial encounter; E86.0 Dehydration; E87.5 Hyperkalemia; I10 Essential (primary) hypertension; K66.8 Other specified disorders of peritoneum; R59.0 Localized enlarged lymph nodes; D69.6 Thrombocytopenia, unspecified; I46.8 Cardiac arrest due to other underlying condition; I49.01 Ventricular fibrillation; E87.70 Fluid overload, unspecified; R09.02 Hypoxemia; I48.91 Unspecified atrial fibrillation; E83.51 Hypocalcemia; Z88.2 Allergy status to sulfonamides; Z96.652 Presence of left artificial knee joint; Z96.651 Presence of right artificial knee joint; Z87.891 Personal history of nicotine dependence; Z78.1 Physical restraint status
CPT/HCPCS: 31500; 36415; 36430; 71045; 74022; 74177; 76770; 80048; 80053; 81001; 82330; 82803; 82947; 83605; 83735; 83880; 84100; 85014; 85018; 85025; 85610; 85730; 86850; 86900; 86901; 86923; 87086; 87106; 87507; 88307; 88342; 92950; 93005; 93010; 94002; 94003; 94640; 94664; 94762; 96361; 96374-59; 96375; 99285-25; A9270; C1751; C9113; J0171; J0612; J1815; J1940; J2250; J2371; J2543; J2704; J3010; J3475; J7030; J7050; J7060; J7070; J7120; P9016; P9047; Q9967